=== PATIENT | male | born 1995 | race Caucasian/White ===

== ENCOUNTER 2018-09-27 02:58 | Emergency (ER) | payer OTHER ==
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
== END 2018-09-27 04:05 | disposition home or self-care (01) ==
LOC: ER 02:58
DX: R12 Heartburn (principal)
CPT/HCPCS: Z7502